=== PATIENT | male | born 1940 | race Caucasian/White ===

== ENCOUNTER 2019-05-02 21:43 | Inpatient (IN) | payer MEDICARE, MEDICAID ==
--- NOTE | 2019-05-02 22:06 | ED ---
Neurological HPI - HPI Summary HPI Summary: A 78 y/o male brought in by [facility] presents to [facility] with a chief complaint of a possible stroke at 18:45 today. 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 Now he denies any weakness and says that he is feeling better. He denies a Hx of CVA. He has a catheter in place and reports pain in his penis. Per EMS, the patient was aphasic and was posturing. In the ED he is still slightly aphasic. He has a right toe infection and was started on Keflex. Nathen gotti was called at 21:51 and the physical exam was done upon arrival at 21:[address] Tong. - History of Current Complaint Stated Complaint: STROKE PER EMS Time Seen by Provider: 05/02/19 21:51 Hx Obtained From: Patient, EMS Onset/Duration: Sudden Onset, Still Present Onset Severity: Mild Current Severity: Mild Neurological Deficit Location: Generalized Pain Intensity: 0 Pain Scale Used: 0-10 Numeric Character: Other: - aphasic Aggravating: Nothing Alleviating: Nothing Associated Signs and Symptoms: Negative: Weakness, Fever - Allergy/Home Medications Allergies/Adverse Reactions: Allergies Allergy/AdvReac Type Severity Reaction Status Date / Time No Known Allergies Allergy Verified 05/02/19 21:56 Home Medications: Home Medications Latanoprost 0.005%* [Xalatan 0.005%*] 1 drop BOTH EYES BEDTIME 05/03/19 [ History Confirmed 05/03/19] Timolol Maleate 1 drop RIGHT EYE DAILY 05/03/19 [History Confirmed 05/03/19] PMH/Surg Hx/FS Hx/Imm Hx Sensory History: Denies: Hx Deafness EENT History: Denies: Hx Deafness Neurological History: Denies: Hx CVA Infectious Disease History: No Infectious Disease History: Denies: Traveled Outside the [place] in Last 30 Days - Family History Known Family History: Positive: Non-Contributory - Social History Alcohol Use: None Substance Use Type: Reports: None Smoking Status (MU): Former Smoker Review of Systems Negative: Fever Positive: pain Neurological: Other - positive: possible stroke, aphasic Negative: Weakness All Other Systems Reviewed And Are Negative: Yes Physical Exam - Summary Physical Exam Summary: Constitutional: Well-developed, Well-nourished, Alert. (-) Distressed Skin: Warm, Dry HENT: Normocephalic; Atraumatic Eyes: Conjunctiva normal Neck: Musculoskeletal ROM normal neck. (-) JVD, (-) Stridor, (-) Tracheal deviation Cardio: Rhythm regular, rate normal, Heart sounds normal; Intact distal pulses; The pedal pulses are 2+ and symmetric. Radial pulses are 2+ and symmetric. (-) Murmur Pulmonary/Chest wall: Effort normal. (-) Respiratory distress, (-) Wheezes, (-) Rales Abd: Soft, (-) tenderness, (-) Distension, (-) Guarding, (-) Rebound Musculoskeletal: (-) Edema Lymph: (-) Cervical adenopathy Neuro: Alert, Oriented x3, no loss of sensation or strength, following commands. Psych: Mood and affect Normal Triage Information Reviewed: Yes Vital Signs On Initial Exam: Initial Vitals Temp Pulse Resp BP Pulse Ox 98.7 F 64 18 163/90 100 05/02/19 21:45 05/02/19 21:45 05/02/19 21:45 05/02/19 21:45 05/02/19 21:45 Vital Signs Reviewed: Yes Diagnostics - Vital Signs Vital Signs Temp Pulse Resp BP Pulse Ox 05/02/19 21:45 98.7 F 64 18 163/90 100 - Laboratory Lab Statement: Any lab studies that have been ordered have been reviewed, and results considered in the medical decision making process. - CT Neck MRA CT Interpretation Completed By: Radiologist Summary of CT Findings: Suggestion of mild to moderate ostial stenosis involving left cervical internal. carotid artery. ED physician has reviewed this imaging report. Head MRA CT Interpretation Completed By: Radiologist Summary of CT Findings: No acute findings. ED physician has reviewed this imaging report. Brain MRI CT Interpretation Completed By: Radiologist Summary of CT Findings: No acute intracranial pathology. ED physician has reviewed this imaging report. - EKG 22:01 Cardiac Rate: NL - 65 bpm EKG Rhythm: Sinus Rhythm Summary of EKG Findings: Normal sinus rhythm at 65 bpm, prolonged WA, 1st degree AV block, normal QRS, normal QTc, STs are elevated in v3, T-waves are normal, nonspecific EKG. NIH Scale - NIH Scale Level of Consciousness: Alert/Keenly Responsive Ask Patient the Month and His/Her Age: Both Correct Ask Pt to Open/Close Eyes and Blanket Washer/Release Non-Paretic Hand: Both Correctly Best Gaze (Only Horizontal Eye Movement): Normal Visual Field Testing: No Visual Loss Facial Paresis-Pt to Smile & Close Eyes or Grimace Symmetry: Normal/Symmetrical Motor Function - Right Arm: No Drift-Holds 10 Seconds Motor Function - Left Arm: No Drift-Holds 10 Seconds Motor Function - Right Leg: No Drift-Holds 10 Seconds Motor Function - Left Leg: No Drift-Holds 10 Seconds Limb Ataxia-Must be out of Proportion to Weakness Present: Absent Sensory (Use Pinprick to Test Arms/Legs/Trunk/Face): Normal Best Language (Describe Picture, Name Items): Some Loss Dysarthria (Read Several Words): Normal Extinction and Inattention: No Abnormality Total Score: 1 Course/Dx - Course Course Of Treatment: A 78 y/o male brought in by [facility] presents to [facility] with a chief complaint of a possible stroke at 18:45 today. 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 Now he denies any weakness and says that he is feeling better. He denies a Hx of CVA. He has a catheter in place and reports pain in his penis. Per EMS, the patient was aphasic and was posturing. In the ED he is still slightly aphasic. He has a right toe infection and was started on Keflex. Nathen gotti was called at 21:51 and the physical exam was done upon arrival at 21:[address] Tong. The physical exam revealed no loss of sensation or strength, following commands. The patient's current NIH stroke scale is 1 and creatinine is 2. At 21:[address] Mcadams who recommended an MRI. EKG at 22:01 showed prolonged WA, 1st degree AV block, normal QRS, normal QTc, STs are elevated in v3, T-waves are normal, nonspecific EKG. At 22:[address] Rodriguez , who agreed with calling MRI in from home. Neck MRA impression: Suggestion of mild to moderate ostial stenosis involving left cervical internal. carotid artery. Head MRI impression: No acute findings. Brain MRI impression: No acute intracranial pathology. At 03:[address] Mcadams, who recommended admission. At 04:[address] Ugarte, hospitalist, who accepted the patient for admission. - Diagnoses Provider Diagnoses: Stroke, Seizure - Physician Notifications Discussed Care Of Patient With: Donte Mcadams Time Discussed With Above Provider: 21:57 Instructed by Provider To: Other - recommended MRI Discharge - Sign-Out/Discharge Documenting (check all that apply): Patient Departure - admit Patient Received Moderate/Deep Sedation with Procedure: No - Discharge Plan Condition: Fair Disposition: ADMITTED TO [facility] Referrals: Curt RODRIGUEZ,Jaylen Tee [Primary Care Provider] - - Billing Disposition and Condition Condition: FAIR Disposition: Admitted to [facility] - Attestation Statements Document Initiated by Scribe: Yes Documenting Scribe: Nilesh Ewing Provider For Whom Scribe is Documenting (Include Credential): Sydni Antunez MD Scribe Attestation: INilesh, scribed for Sydni Tong MD on 05/03/19 at 0639. Scribe Documentation Reviewed: Yes Provider Attestation: The documentation as recorded by the Nilesh anglin accurately reflects the service I personally performed and the decisions made by , Sydni Tong MD Status of Scribe Document: Viewed Consult Consult: At 22:[address] Rodriguez, who agreed with calling MRI in from home At 03:[address] Mcadams, who recommended admission. At 04:[address] Ugarte, hospitalist, who accepted the patient for admission.
[2019-05-03] MEDS ORDERED: Calcium Carbonate CHEW TAB* 500 MG (TUMS) PO ONE (06:54)
[2019-05-03 07:29] LABS: ABS Basophils 0.1 10^3/ul (0-0.2); ABS Eosinophils 0.1 10^3/ul (0-0.6); ABS Lymphocytes 2.5 10^3/ul (1.0-4.8); ABS Neutrophils 6.2 10^3/ul (1.5-7.7); Eosinophil % 1.2 %; Hematocrit 37 % (42-52); Hemoglobin 13.1 g/dL (14.0-18.0); Lymphocyte % 25.7 %; Mean Corpuscular HGB Conc 35 g/dL (31-36); Mean Corpuscular Hemoglobin 32 pg (27-31); Mean Corpuscular Volume 91 fL (80-94); Platelet Count 210 10^3/uL (150-450); Red Cell Distribution Width 13 % (10-15); White Blood Count 9.9 10^3/uL (3.5-10.8)
[2019-05-03 07:44] LABS: BUN/Creatinine Ratio 13.2 (8-20); Calcium 8.8 mg/dL (8.6-10.3); EGFR African American 51.5 (>60); EGFR Non-African American 42.5 (>60); Potassium 4.2 mmol/L (3.5-5.0)
--- NOTE | 2019-05-03 08:41 | HP ---
CC: Dr. Jaylen Elias ADMISSION HISTORY AND PHYSICAL: DATE OF ADMISSION: 05/03/19 CHIEF COMPLAINT: Altered mental status and possible seizure. HISTORY OF PRESENT ILLNESS: This is a 78-year-old male with a past medical history of possible diabe luci and glaucoma, was sent from [facility] with chief complaint of possible stroke. He receiv ed post tPA and post administration of tPA, they recommended a CTA, which they could not perform ther e. So, he was sent to [facility] ED for a CT angiogram. Given that the patient's creatinine was abnormal, the CT angiogram was changed to an MRI and MRA of the brain and the patient was referred t hospitalist service for admission for post-tPA care. The patient himself on evaluation is complete ly back to his baseline. He stated that he was in his usual state of health up until yesterday. He was stressed as his refrigerator was broken, which is a high-end refrigerator. He was stressed about that and his son came in and thought that he was not doing well and called the ambulance for him, an d the patient was unable to give any further history other than that, and he knew that he had an ambu jong ride from [facility] to [facility]. According to the ED physician's report, the patient's NIH stroke scale initially was noted to be 20 and the repeat NIH stroke scale was noted to be 12 and the one after that was noted to be 1. During my evaluation, the patient was completely back to his baseline and was speaking in fluent sentences. There was no dysarthria that was noted by the ER physician to give him an NIH stroke scale of 1. There is documentation on the [facility] records that the patient might have had a seizure en route in the ambulance. PAST MEDICAL HISTORY: The patient states that he has glaucoma, for which he takes eye drops. He use d to take medication for diabetes, but he quit taking them as it did not make him feel good. The pat ient was admitted once for pneumonia, which required an inpatient stay of over 11 days. Also, gastro esophageal reflux disease and history of shingles. PAST SURGICAL HISTORY: He has had a wrist fracture after a fall off the roof in his younger years, f or which he required surgery. During the same fall, the patient also had some rib fractures that wer e treated conservatively. HOME MEDICATIONS: The patient is takin. Timolol 1 drop to right eye daily. 2. Latanoprost 1 drop to both eyes daily at bedtime. ALLERGIES: BEE VENOM. FAMILY HISTORY: Noncontributory at his age of 78. SOCIAL HISTORY: The patient quit smoking 25 years ago. Prior to that, he used to smoke 2 packs per day for 31 years. Denies any alcohol or drug use. Currently retired. REVIEW OF SYSTEMS: A 14-point review of systems did not reveal any new information, other than what is stated in the HPI, except for the patient does have some heartburn and some constipation. PHYSICAL EXAMINATION GENERAL: The patient is awake, alert and oriented x3, does not appear to be in any acute distress. VITAL SIGNS: In ER, BP was noted to be 125/71, heart rate 57, respiration rate 18, saturating 100% o n room air, temperature documented at 98.7. HEAD AND NECK: Atraumatic, normocephalic. Bilateral pupils are reactive. Oral mucosa was moist. N paula: Supple. No jugular venous distention. LUNGS: Clear to auscultation bilaterally. No wheezing, rhonchi, or rales. HEART: S1, S2. Regular rate and rhythm. ABDOMEN: Soft, nontender, nondistended. EXTREMITIES: No cyanosis, clubbing, or edema. DIAGNOSTIC STUDIES/LAB DATA: CBC from [facility] shows WBC of 8.94, hemoglobin 13.8, hematoc rit 40.3, platelet count was noted to be 260. INR was noted to be 1.07. PTT was noted to be 21.3. Urinalysis was positive for trace protein. Negative for nitrite or leuk esterase. Creatinine was no remy to be elevated at 2.0. BUN was noted to be 20. Random glucose was elevated at 247, sodium 139, potassium 4.2, chloride 104, bicarb of 25. LFTs were within normal limits. Urine drug screen was ne gative. CT brain from [facility], the result is unavailable at this point. However, a brain MRI was p erformed in our ER, which showed no acute intracranial pathology and a head MRA suggests no acute fin dings. Neck MRA suggests [id number] ostial stenosis involving the left cervical internal carot id artery. EKG shows sinus rhythm at 65 beats per minute. ASSESSMENT AND PLAN: This is a 78-year-old male with past medical history of diabetes; noncompliant with any medications, history of glaucoma and a recent toe infection, here due to altered mental stat us from possible stroke, status post TPA. The patient is now completely back to his baseline and he i s being admitted to monitor post-TPA administration, only pertinent positive during this admission. 1. Possible cerebrovascular accident, status post TPA. We will monitor with neuro checks and consul t neurology to evaluate the patient. The patient's MRA of the neck suggests left internal carotid ar jordi stenosis, [id number]. I will check with neurology if outpatient workup or surgical follow up is required for this. We will consider starting the patient on aspirin based on neurology recomme ndation, although given the patient just received tissue plasminogen activator right now, I will leav e the decision up to the neurologist. I will also check a lipid panel and A1c to risk stratify the p atient and monitor him in the ICU for post-TPA monitoring. 2. Possible seizure as documented. We will place the patient on seizure precautions for now. 3. History of glaucoma. We will restart his home medications. 4. Elevated random glucose. We will consider an A1c level and consider starting the patient on diab etic medications, although the patient is adamant that he does not want to take diabetes medications. 5. DVT prophylaxis with sequential compression device. [id number]/[facility] #: [id number]
[2019-05-03] MEDS: NS 0.9% 1000 ML** 1,000 ML IV SCH ×2 (08:54→22:07)
[2019-05-03] MEDS ORDERED: Timolol 0.5% OPTH.SOL* BTL RIGHT EYE SCH (09:00)
[2019-05-03] MEDS ORDERED: Calcium Carbonate CHEW TAB* 500 MG (TUMS) PO PRN (13:38)
[2019-05-03] MEDS ORDERED: Dextrose 50% Syringe 50 ML* 25 GM/50 ML SYRINGE IV PUSH PRN (13:43)
--- NOTE | 2019-05-03 14:43 | EEG ---
ELECTROENCEPHALOGRAPHY: DATE OF STUDY: 05/03/19 ORDERED BY: Otis Ugarte MD CLINICAL PROBLEM: Possible seizure in a 78-year-old man who came in with aphasia. This EEG was obtained to evaluate for epileptiform abnormalities or electrographic seizures. MEDICATIONS: 1. Xalatan. 2. Timoptic. CLINICAL STATE: Awake and drowsy. REPORT: The waking background consisted of a mixed frequency slowing in the delta and theta range with appropriate organization and clearly defined anterior - posterior voltage gradients. There was poorly sustained posterior dominant rhythm of 8 Hz, which was symmetrical and showed normal reactivity. Attenuation of the occipital rhythm accompanied drowsiness. There were intermittent, occasional paroxysms of sharply contoured 2-5 Hz theta and delta slowing over the left temporal region. This was maximal at A1, T3, and T5. There were no clear epileptiform discharges. Hyperventilation and photic stimulation were not performed. Single-electrode EKG showed sinus bradycardia with the rate of 50 beats per minute. Throughout the recording, there were no electrographic seizures. CLINICAL IMPRESSION: This is an abnormal awake and drowsy EEG due to diffuse background slowing with focal, intermittent, occasional mixed slowing over the left temporal region. These findings are suggestive of a diffuse, mild nonspecific encephalopathy with superimposed focal neuronal dysfunction in the left temporal region. There were no epileptiform discharges or electrographic seizures. Please note that sinus bradycardia was noted during this recording. [id number]/[facility] #: [id number] [facility]
--- NOTE | 2019-05-03 15:51 | CONS ---
NEUROLOGY CONSULTATION NOTE: DATE OF CONSULT: 05/03/19 CONSULTING PROVIDER: Dr. Otis Ugarte. REASON FOR CONSULT: Possible seizure. CHIEF COMPLAINT: Word-finding difficulty, loss of consciousness, and loss of awareness. HISTORY OF PRESENT ILLNESS: Mr. Matteo Pathak is a 78-year-old man with history of diabetes and glaucoma who was a transfer from [facility] after being treated with IV tPA. The patient was in normal state of health up until approximately 4:45 on 05/02/19. The patient developed sudden onset word- finding difficulty. According to his fiancee who is at bedside, the patient was walking around, seemed to be in distress, with staring into space, and repeating "ah ah." The patient was unable to produce any words. EMS was contacted. His last known well time was 4:45 and symptoms onset approximately 5 p.m. on 05/02/19. He was taken to [facility] where a telestroke consultation from the [facility] was done and the patient was a candidate for IV tPA. He was noted to have an NIH Stroke Scale of approximately 20, but then it dropped to 12. En route to [facility], the patient was noted to have some decorticate movements. He was completely altered. The patient does not remember the route from his home to the hospital. Eventually, the patient was transferred to [facility] where Dr. Stover assessed the patient and found him to only have a NIH Stroke Scale of 1. Apparently, the patient's symptoms completely resolved by 8 p.m. yesterday. There was no reported benzodiazepine administration during the route. The patient was extremely exhausted and fatigued following the episode. The patient stated that he recalls some of the events that took place yesterday. The patient is extremely stressed out. 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 He also had an incident where his refrigerator and washing machine broke yesterday. He also moved/ transported 5 large bags of corn yesterday morning. The patient had an MRI of the brain without contrast that showed diffuse microvascular small vessel ischemic changes. There was no evidence of an area of restricted diffusion or ADC mapping to suggest an acute stroke. There was no intracranial hemorrhage. A stat MRA of the head and neck was obtained. There was no evidence of large vessel occlusion. He has some moderate ostial disease in the left carotid artery near the cervical region. Currently, the patient is asymptomatic. He is in the ICU for post tPA monitoring. SEIZURE HISTORY: The patient has history of a fall with multiple head injuries in the past. He has no history of meningitis or encephalitis. He denied any history of febrile seizures. He has no history of brain or spinal cord surgeries. PAST MEDICAL HISTORY: Glaucoma, diabetes for which he refused to take metformin because it caused him to have some fogginess. The patient also has GERD, history of shingles, and left Montoya palsy 6 years ago. The patient has a toe infection that he was just recently prescribed antibiotics, although he did not start the antibiotics as of yet. PAST SURGICAL HISTORY: Wrist fracture after a fall from a roof at younger years. HOME MEDICATIONS: 1. Timolol 1 drop to the eye. 2. Latanoprost 1 drop to both eyes at bedtime. ALLERGIES: BEE VENOM. FAMILY HISTORY: No family history of stroke or seizures. SOCIAL HISTORY: The patient quit smoking 30 years ago. He used to smoke 2 packs per day for 30 years. He denied any alcohol or drug use. He is currently retired. He is inappropriate and talks about how he watches pornography as well. REVIEW OF SYSTEMS: A 14-point review of systems was obtained, reviewed, and otherwise negative except for what was mentioned in the HPI. PHYSICAL EXAM: Vitals: Temperature of 98.4, pulse of 50, respiratory rate of 16, oxygen saturation of 99%, blood pressure of 143/94. General: Well- nourished, well- developed man, in no acute distress. Head: Atraumatic, normocephalic without any obvious abnormality. Eyes: Conjunctivae/corneas are clear. Neck is supple and symmetrical with no carotid bruits. Cardiovascular: Regular rate and rhythm with normal S1, S2. No murmurs. Chest: Clear to auscultation bilaterally with no wheezing or rhonchi. Extremities: No hammertoes or high arches. Skin: No skin lesions or lacerations. Psych: Inappropriate behavior, but affect is broad and normal mood. Easy to establish rapport. Very talkative. Neurological Examination: Mental Status: Awake, alert, and oriented to person, place, time, and general circumstances. Speech and language including expression, comprehension, and repetition were assessed and found to be normal. Cranial Nerves: Pupils are equal, round, and reactive to light. Extraocular muscles are intact. There is mild facial droop on the left that is chronic with widening of the palpebral fissure. Tongue is symmetric and midline with no atrophy or fasciculation. Motor Examination: 5/ 5 strength in the upper and lower extremities. No pronator drift. Sensory: Sensation is intact to light touch and pinprick throughout. Coordination: Normal [id number] and ckbc-lk-[id number] testing. Reflexes: 2+ in the biceps, triceps, and brachioradialis bilaterally; 1+ at the knees and 0 at the ankles bilaterally. Gait: Wide based gait, normal stance. No ataxia. DIAGNOSTIC STUDIES: EEG showed diffuse slowing suggestive of nonspecific encephalopathy with focal slowing in the left temporal region. IMPRESSION: Mr. Matteo Pathak is a 78-year-old poorly controlled diabetic who had a sudden onset of word-finding difficulty that quickly progressed to generalized extensor posturing like movements and altered sensorium. He was able to regain consciousness and back to his normal self approximately 3 hours after the onset of the symptoms. Currently, the patient's NIH Stroke Scale is 0 and he is asymptomatic. The differential diagnosis to his presentation is mostly likely a transient ischemic attack emanating from the left internal carotid artery causing cortical irritation to the left cerebral hemisphere, triggering complex partial seizure with secondary generalization. Given the duration of his confusion as well as suspected seizures, we have decided to proceed with antiseizure medication. We will also optimize the primary prevention of stroke. Please note that the patient did receive IV tPA. RECOMMENDATIONS: Please repeat a CT head without contrast 24 hours after the tPA administration. If negative, please start the patient on aspirin 81 mg daily. Please start the patient on atorvastatin 80 mg nightly. Obtain a lipid panel. We also started the patient on levetiracetam 500 mg twice daily. Discussed with the patient and family to look for any of the common side effects of irritability and agitation related to levetiracetam use. No need for PT/OT/PHOTOCOPYING EQUIPMENT MECHANIC evaluation and treatment since the patient has recovered. I have ordered a transthoracic echo to look for any atrioventricular thrombus. No need for anticoagulation therapy at this time since the patient does not have any evidence of atrial fib. Pending vitamin B12 level. TIA education was completed with the patient and his family at bedside. I will continue to follow. [id number]/[facility] #: [id number] [facility]
[2019-05-03] MEDS ORDERED: Atorvastatin* 80 MG TAB PO SCH (17:00)
[2019-05-03] MEDS: Insulin LISPRO* 1 UNITS UNIT SUBCUT SCH (18:09)
--- NOTE | 2019-05-03 18:25 | PN ---
Subjective Date of Service: 05/03/19 Interval History: Patient feels back to baseline. Patient has significant GERD which is a problem which has been ongoing. Patient denies F/C, N/V, abdominal pain, CP, SOB, dizziness, or other pain. Family History: Unchanged from Admission Social History: Unchanged from Admission Past Medical History: Unchanged from Admission Objective Active Medications: Atorvastatin Calcium (Lipitor*) 80 mg PO 1700 LISA Last Admin: 05/03/19 18:09 Dose: 80 mg Calcium Carbonate (Tums*) 500 mg PO Q4H PRN PRN Reason: HEARTBURN Cephalexin HCl (Keflex Cap*) 500 mg PO BID [facility] Dextrose (D50w Syringe 50 Ml*) 12.5 gm IV PUSH .FOR FS < 60 - SS PRN PRN Reason: FS < 60 Famotidine (Pepcid Tab*) 20 mg PO BID [facility] Sodium Chloride (Ns 0.9% 1000 Ml) 1,000 mls @ 75 mls/hr IV PER RATE [facility] Last Admin: 05/03/19 08:54 Dose: 75 mls/hr Insulin Human Lispro (Humalog*) 0 units SUBCUT AC [facility]; Protocol Last Admin: 05/03/19 18:09 Dose: 1 unit Latanoprost (Xalatan 0.005%*) 1 drop BOTH EYES BEDTIME [facility] Levetiracetam (Keppra Tab*) 500 mg PO BID [facility] Vital Signs - 8 hr 05/03/19 05/03/19 05/03/19 10:31 11:00 11:25 Temperature 98.4 F Pulse Rate 53 49 Respiratory 16 14 Rate Blood Pressure 142/73 151/69 (mmHg) O2 Sat by Pulse 100 99 Oximetry 05/03/19 05/03/19 05/03/19 11:31 12:00 12:30 Temperature Pulse Rate 56 48 46 Respiratory 15 17 16 Rate Blood Pressure 137/63 141/70 158/77 (mmHg) O2 Sat by Pulse 99 98 98 Oximetry 05/03/19 05/03/19 05/03/19 12:41 13:00 13:31 Temperature Pulse Rate 49 46 50 Respiratory 17 14 15 Rate Blood Pressure 143/94 137/79 143/71 (mmHg) O2 Sat by Pulse 99 99 100 Oximetry 05/03/19 05/03/19 05/03/19 14:00 14:01 14:35 Temperature Pulse Rate 48 52 Respiratory 20 14 19 Rate Blood Pressure 126/77 124/75 (mmHg) O2 Sat by Pulse 100 99 Oximetry 05/03/19 05/03/19 05/03/19 15:00 15:30 16:00 Temperature 98.1 F Pulse Rate 50 49 Respiratory 19 14 16 Rate Blood Pressure 142/64 163/75 (mmHg) O2 Sat by Pulse 99 97 Oximetry 05/03/19 16:31 Temperature Pulse Rate 50 Respiratory 23 Rate Blood Pressure 163/74 (mmHg) O2 Sat by Pulse 100 Oximetry Oxygen Devices in Use Now: None Appearance: Patient is a 78yo male who appears stated age and is sitting in the bed in [facility]. Eyes: No Scleral Icterus, PERRLA Ears/Nose/Mouth/Throat: NL Teeth, Lips, Gums, Clear Oropharnyx, Mucous Membranes Moist Neck: NL Appearance and Movements; NL JVP, Trachea Midline, No Thyroid Enlargement, Masses Respiratory: Symmetrical Chest Expansion and Respiratory Effort, Clear to Auscultation Cardiovascular: NL Sounds; No Murmurs; No JVD, RRR, No Edema Abdominal: NL Sounds; No Tenderness; No Distention, No Hepatosplenomegaly Lymphatic: No Cervical Adenopathy Extremities: No Edema, No Clubbing, Cyanosis Skin: No Rash or Ulcers, No Nodules or Sclerosis Neurological: Alert and Oriented x 3, NL Sensation, NL Muscle Strength and Tone , - - CN II-XII intact. Result Diagrams: 05/03/19 06:52 05/03/19 06:52 Microbiology and Other Data: Microbiology 05/03/19 08:45 Nasal Screen MRSA (PCR) - Final Nasal Mrsa Not Detected Assess/Plan/Problems-Billing Assessment: Patient is a 78yo male with a PMH for DM II who had a sudden onset of diminished consciousness, weakness and confusion. Patient was given tpa for concern for stroke and had complete resolution of symptoms. - Patient Problems (1) Weakness Current Visit: Yes Status: Acute Code(s): R53.1 - WEAKNESS SNOMED Code(s) : 31378524 Comment: - Completely resolved at this point. - MRI negative for CVA - Concern for TIA with possible provocation of seizure - EEG abnormal - Start Keppra - Start ASA tomorrow - Appreciate Neuro consult - Bleeding precautions (2) DMII (diabetes mellitus, type 2) Current Visit: Yes Status: Acute Comment: - A1c 9.5 - SSI inpatient - Metformin Intolerant - Will start oral meds at D/C (3) GERD (gastroesophageal reflux disease) Current Visit: Yes Status: Acute Code(s): K21.9 - GASTRO-ESOPHAGEAL REFLUX DISEASE WITHOUT ESOPHAGITIS SNOMED Code(s): 913298600 Comment: - Start Pepcid (4) B12 deficiency Current Visit: Yes Status: Acute Code(s): E53.8 - DEFICIENCY OF OTHER SPECIFIED B GROUP VITAMINS SNOMED Code(s): 224959485 Comment: - Supplement (5) DVT prophylaxis Current Visit: Yes Status: Acute Code(s): Z29.9 - ENCOUNTER FOR PROPHYLACTIC MEASURES, UNSPECIFIED SNOMED Code(s): 019465592 Comment: - No chemical DVT prophylaxis (6) Full code status Current Visit: Yes Status: Acute Code(s): Z78.9 - OTHER SPECIFIED HEALTH STATUS SNOMED Code(s): 694921229 Status and Disposition: Inpatient for CVA concern.
[2019-05-03] MEDS: Famotidine TAB* 20 MG PO SCH (20:03)
[2019-05-03] MEDS: Cephalexin CAP* 500 MG PO SCH (20:03)
[2019-05-03] MEDS: levETIRAcetam TAB* 500 MG PO SCH (20:03)
--- NOTE | 2019-05-03 20:05 | ECHO ---
*[facility]* [place] [address] Fax #: [phone] Transthoracic Echocardiogram (Report amended [id number]) Patient: Matteo Pathak : 1940 Study Date: 05/03/2019 Age: 78 Gender: M HR: 47 bpm Height: 71 in /180.3 cm BSA: 1.96 m^2 Weight: 167.7 lb /76.2 kg BMI: 23.4 kg/m^2 *Programming Specialist: * Jacquelin Gonzalez [facility] *Referring Physician: * Donte Mcadams *Reading Physician: * Karthik Howell MD Indications: CVA. History: Risk factors: Former tobacco use. S/P tPA. Conclusions Summary: - Left ventricle: The cavity size is below normal. Wall thickness is mildly increased. Systolic function is normal by visual assessment. The estimated ejection fraction is 60-65%. Doppler parameters are consistent with abnormal left ventricular relaxation (grade 1 diastolic dysfunction). - Atrial septum: A PFO is demonstrated by agitated saline contrast. - Aortic valve: The valve is trileaflet. The leaflets are mildly thickened. Valve mobility is restricted. Study data: Transthoracic echocardiogram. Procedure: Transthoracic echocardiography was performed. Image quality was fair. The study was technically limited due to poor acoustic window availability. Poor parasternal imaging. A bubble study was performed. Complete 2D, spectral Doppler, and color flow Doppler. Location: ICU Patient status: Inpatient. Patient room number: ICU-10. No prior study is available for comparison. Rhythm: Bradycardia. Findings Left ventricle: The cavity size is below normal. Wall thickness is mildly increased. Systolic function is normal by visual assessment. The estimated ejection fraction is 60-65%. Wall motion is normal; there are no regional wall motion abnormalities. Doppler parameters are consistent with abnormal left ventricular relaxation (grade 1 diastolic dysfunction). Right ventricle: The cavity size is mildly dilated. Systolic function is normal. Left atrium: The atrium is normal in size. Right atrium: The atrium is normal in size. Atrial septum: There is a probable, small patent foramen ovale. A PFO is demonstrated by agitated saline contrast. Small amounts of contrast shunt right to left with valsalva. Mitral valve: The leaflets are mildly thickened. There is no evidence of stenosis. There is no significant regurgitation. Aortic valve: The valve is trileaflet. The leaflets are mildly thickened. Focal thickening involving the noncoronary cusp. Valve mobility is restricted. There is no evidence of stenosis. There is no significant regurgitation. Tricuspid valve: The leaflets are normal thickness. There is no evidence of stenosis. There is physiologic regurgitation. Pulmonic valve: The leaflets are normal thickness. There is no evidence of stenosis. There is no significant regurgitation. Aorta: Aortic root: The aortic root is not dilated and calcified. Ascending aorta: The ascending aorta is appears normal. Aortic arch: The aortic arch is poorly visualized and appears normal. Pericardium: A prominent pericardial fat pad is present. There is no significant pericardial effusion. Pulmonary arteries: The main pulmonary artery is normal-sized. Systolic pressure can not be accurately estimated. Systemic veins: Inferior vena cava: The vessel is dilated. There is (>= 50%) respiratory change in the IVC dimension. Measurements Left ventricle Value Ref Right atrium continued Value Ref RENETTA, LAX (L) 3.0 cm 4.2 - 5.8 SI dim, ES, A4C 4.4 cm 3.4 - 5.3 ESD, LAX 2.8 cm 2.5 - 4.0 Estimated RAP 8 mm Hg --------- FS, LAX (L) 7 % 25 - 43 PW, ED, LAX (H) 1.1 cm 0.6 - 1.0 Aortic valve Value Ref FS (L) 7 % 25 - 43 Venessa diam, ED 2.1 cm --------- PW, ED (H) 1.1 cm 0.6 - 1.0 Peak v, S 1.5 m/sec --------- E', lat venessa, TDI (L) 8.1 cm/sec >=10.0 VTI, S 34.0 cm -- ------- E/e', lat venessa, 11 Mean grad, S 4.0 mm Hg ----- ---- TDI Peak grad, S 9.0 mm Hg --------- E', med venessa, TDI 7.6 cm/sec >=7.0 LVOT/AV, VTI ratio 0.6 -- ------- E/e', med venessa, 12 VIDAL, VTI 1.89 cm^2 ----- ---- TDI VIDAL, Vmax 2.22 cm^2 --------- E', avg, TDI 7.9 cm/sec E/e', avg, TDI 12 <=14 Mitral valve Value Re f Peak E 0.91 m/sec --------- LVOT Value Ref Peak A 1.29 m/sec --------- Diam, S 2.00 cm Decel time 232 ms --------- Area 3.1 cm^2 Peak grad, D 3.3 mm Hg --------- Peak thomas, S 1.06 m/sec Peak E/A ratio 0.7 --------- VTI, S 20.5 cm Mean grad, S 2 mm Hg Pulmonic valve Value Ref SV 64 ml Peak v, S 0.63 m/sec --------- SV/bsa 33 ml/m^2 Peak grad, S 2.0 mm Hg --------- Ventricular septum Value Ref Aortic root Value Ref IVS, ED (H) 1.4 cm 0.6 - 1.0 Root diam 3.4 cm <4.1 Right ventricle Value Ref Ascending aorta Value Ref RENETTA, LAX 4.5 cm AAo AP diam, S 3.5 cm --------- RENETTA minor ax, (H) 4.5 cm 1.9 - 3.5 A4C mid Aortic arch Value Ref Arch diam 2.3 cm --------- Left atrium Value Ref AP dim, ES 3.80 cm 3.00 - Decending aorta Value Ref 4.00 Porsha peak thomas 0.5 m/sec --------- ML dim, A4C 4.4 cm SI dim, A4C 4.7 cm Inferior vena cava Value Ref Vol/bsa, ES, 1-p 31 ml/m^2 12 - 37 Diam 2.3 cm --------- A4C Vol/bsa, ES, A/L 22 ml/m^2 16 - 34 Right atrium Value Ref SI dim, ES 4.4 cm 3.4 - 5.3 ML dim, ES, A4C 4.2 cm 2.6 - 4.4 Legend: (L) and (H) frances values outside specified reference range. Amended Karthik Howell MD 05/04/2019 08:19
[2019-05-03] MEDS ORDERED: Latanoprost 0.005%* 2.5 ml BTL BOTH EYES SCH (21:00)
[2019-05-03] MEDS: Cyanocobalamin TAB* 500 MCG PO SCH (21:41)
[2019-05-04 04:42] LABS: ABS Basophils 0.1 10^3/ul (0-0.2); ABS Eosinophils 0.3 10^3/ul (0-0.6); ABS Lymphocytes 2.7 10^3/ul (1.0-4.8); ABS Monocytes 0.7 10^3/ul (0-0.8); Eosinophil % 4.4 %; Hematocrit 38 % (42-52); Hemoglobin 12.7 g/dL (14.0-18.0); Lymphocyte % 39.6 %; Mean Corpuscular HGB Conc 34 g/dL (31-36); Mean Corpuscular Hemoglobin 31 pg (27-31); Mean Corpuscular Volume 92 fL (80-94); Mean Platelet Volume 7.8 fL (7.4-10.4); Nucleated Red Blood Cells % 0.1; Platelet Count 195 10^3/uL (150-450); Red Blood Count 4.09 10^6 /uL (4.18-5.48); Red Cell Distribution Width 13 % (10-15); White Blood Count 6.8 10^3/uL (3.5-10.8)
[2019-05-04 05:01] LABS: Calcium 8.7 mg/dL (8.6-10.3); EGFR African American 61.6 (>60); EGFR Non-African American 50.9 (>60); HDL Cholesterol 27.8 mg/dL; Magnesium 1.7 mg/dL (1.9-2.7); Potassium 3.9 mmol/L (3.5-5.0)
[2019-05-04] MEDS ORDERED: Magnesium Sulfate 2 GM IV* 2 GM/50 ML BAG IVPB ONE (07:00)
[2019-05-04] MEDS: Insulin LISPRO* 1 UNITS UNIT SUBCUT SCH (08:11)
[2019-05-04] MEDS: Cyanocobalamin TAB* 500 MCG PO SCH (08:12)
[2019-05-04] MEDS: Cephalexin CAP* 500 MG PO SCH (08:12)
[2019-05-04] MEDS: Famotidine TAB* 20 MG PO SCH (08:13)
[2019-05-04] MEDS: levETIRAcetam TAB* 500 MG PO SCH (08:13)
[2019-05-04] MEDS ORDERED: Aspirin EC TAB* 81 MG TAB.EC PO SCH (09:00)
[2019-05-04 10:18] VITALS: BP 152/83
--- NOTE | 2019-05-05 04:36 | DS ---
CC: Dr. Jaylen Elias * DISCHARGE SUMMARY: DATE OF ADMISSION: 05/03/19 DATE OF DISCHARGE: 05/04/19 PRIMARY CARE PROVIDER: Dr. Jaylen Elias and Dr. Zamzam Nassar. ATTENDING PROVIDER: Dr. Zamzam Nassar * (DICTATED BY EMILY REYES) PRIMARY DISCHARGE DIAGNOSES: 1. Possible weakness. 2. Possible transient ischemic attack. 3. Possible seizure, now status post TPA administration. SECONDARY DISCHARGE DIAGNOSES: 1. Diabetes mellitus type 2. 2. Glaucoma. 3. Gastroesophageal reflux disease. 4. History of shingles. STUDIES DONE WHILE IN THE HOSPITAL: Brain MRI from 04/02/19 read as no acute intracranial abnormality. 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 Electroencephalogram read as abnormal awake and drowsy EEG due to diffuse background slowing with focal, intermittent, occasional mixed slowing of the right temporal region. These findings are suggestive of diffuse, mild nonspecific encephalopathy with superimposed focal neuronal dysfunction in the left temporal region. There is no epileptiform discharge or electrographic seizures. Transthoracic echocardiogram from 05/03/19 read as left ventricular chamber size mildly reduced, wall thickness mild increased, grade 1 diastolic dysfunction, PFO as demonstrated, slightly thickened aortic valve leaflets. Derian CT from 01/31/19 read as acute intracranial abnormality. Venous Doppler study from 05/04/19 read as no evidence for deep venous thrombosis. MEDICATIONS AT DISCHARGE: 1. Latanoprost 1 drop both eyes at bedtime. 2. Atorvastatin 80 mg p.o. daily. 3. Calcium carbonate 500 mg p.o. q.4 hours as needed. 4. Cephalexin 500 mg p.o. b.i.d. 5. Vitamin B12 1000 mcg p.o. daily. 6. Jardiance 10 mg p.o. daily. 7. Famotidine 20 mg p.o. b.i.d. 8. Keppra 500 mg p.o. b.i.d. 9. Aspirin 81 mg p.o. daily. Medications discontinued at discharge: Timolol 1 drop right eye daily. New medications at discharge: 1. Lipitor. 2. Calcium carbonate. 3. Vitamin B12. 4. Jardiance. 5. Famotidine. 6. Keppra. 7. Aspirin. HOSPITAL COURSE: This is a brief summary of the patient's presentation. For more details, please see the history and physical from Dr. Otis Ugarte on . In brief, the patient is a 78-year-old male with past medical history significant for the above who has not undergone routine medical care recently, who is under a large amount of stress and went to lay down and was found by the family afterwards very confused with weakness and some involuntary posturing and difficulty finding words. The patient was taken to [facility] and given IV TPA. Initial NIH stroke scale was 20, decreased to 12, decreased to 1 upon arrival to the [facility] and was completely back to baseline. Upon time of admission, the patient was admitted to the ICU. The patient was found to have an elevated A1c, an elevated creatinine of 1.59, which decreased with fluids and low B12 level. He recently had a lipid profile with LDL of 70. The patient has no signs of stroke as above. The patient was monitored overnight in the ICU with no acute events. The patient's main complaint during this time was heartburn and repeat brain which showed no hemorrhage from his TPA. The patient as above had a PCP, who demonstrated a venous Doppler study of his lower extremities which was negative. The patient's treatment plan was decided to be aspirin, Lipitor, and Keppra for seizure prophylaxis. The patient was stable enough for discharged on 05/04/19. PHYSICAL EXAMINATION AT DISCHARGE: General: The patient is a 78-year-old male who appears stated age and sitting comfortably in bed, in no acute distress. Vital Signs: At the time of evaluation, temperature 99.0, pulse rate 60, respiratory rate 19, oxygen saturation 98% on room air, blood pressure 152/83. HEENT: Head normocephalic, atraumatic. Sclerae anicteric. No conjunctival injection. Nasal mucosa moist. Oral mucosa moist. No pharyngeal erythema, discharge, or exudate. Neck: Supple, nontender. No lymphadenopathy. No carotid bruits auscultated. No JVD. Cardiac: Regular rate and rhythm. No clicks, murmurs, gallops, or rubs. Pulses are 2+ in the bilateral dorsalis pedis , posterior tibialis, and radial areas. Respiratory: Clear to auscultation bilaterally. No wheezes, rales, or rhonchi. Good air exchange bilaterally. Abdomen: Soft, nontender, nondistended. Bowel sounds present and normoactive in all 4 quadrants. No hepatosplenomegaly. No abdominal bruits auscultated. No hepatojugular reflux. Genitourinary: No suprapubic or CVA tenderness. Skin : Clean, dry, and intact. No rash. Neuro: Cranial nerves II through XII intact. No focal deficits. Alert and oriented x3. Psychiatric: Pleasant and cooperative. DISCHARGE PLAN: The patient will be discharged to home. The patient will be treated as above for his TIA and possible secondary seizure with Lipitor, aspirin, and Keppra, which he tolerated while in the hospital. The patient had lower extremity wound, which is being treated with Keflex . He should follow up with primary care provider in 1 week for general medical management to assure he is tolerating his medications and to stress foot is healing. The patient's was borderline B12 deficient. This will be supplemented. The patient will be started on empagliflozin as above due to his metformin intolerance and relatively uncontrolled diabetes. The patient should observe a consistent carbohydrate diet. Gait and activity as tolerated. The patient should be referred to a software educator. The patient will return to the hospital for passing out, chest pain, new weakness, involuntary movement or alarming symptoms. TIME SPENT: Approximately 60 minutes was spent on the discharge of this patient , 30 of which was spent [id number] obtaining history and physical and discussing treatment plan. EMILY REYES [id number]/[facility] #: [id number] PAT
== END 2019-05-04 09:40 | disposition home or self-care (01) | DRG 69 ==
LOC: ED 21:43 → ICU 05-03 06:20
PROVIDERS: ADMIT Internal Medicine; ATTEND Internal Medicine
PROC: 4A00X4Z Measurement of Central Nervous Electrical Activity, External Approach (ICD-10-PCS; principal; 2019-05-03)
DX: G45.9 Transient cerebral ischemic attack, unspecified (principal); Q21.1 Atrial septal defect; E11.39 Type 2 diabetes mellitus with other diabetic ophthalmic complication; H42 Glaucoma in diseases classified elsewhere; R29.701 NIHSS score 1; K21.9 Gastro-esophageal reflux disease without esophagitis; K59.00 Constipation, unspecified; E53.8 Deficiency of other specified B group vitamins; R53.1 Weakness; R56.9 Unspecified convulsions; I65.22 Occlusion and stenosis of left carotid artery; E11.65 Type 2 diabetes mellitus with hyperglycemia; S80.929A Unspecified superficial injury of unspecified lower leg, initial encounter; X58.XXXA Exposure to other specified factors, initial encounter; Y92.9 Unspecified place or not applicable; Z87.01 Personal history of pneumonia (recurrent); Z91.030 Bee allergy status; Z87.891 Personal history of nicotine dependence; Z91.14 Patient's other noncompliance with medication regimen; Z86.19 Personal history of other infectious and parasitic diseases; Z79.82 Long term (current) use of aspirin; Z79.84 Long term (current) use of oral hypoglycemic drugs
CPT/HCPCS: 36415; 70450; 70544; 70547; 70551; 80048; 80061; 82607; 83036; 83735; 85025; 87641; 93005; 93306; 93970; 95819; 99285; A9270-GY; J3475